=== PATIENT | female | born 1960 | race Hispanic/Latino ===

== ENCOUNTER 2021-02-27 23:03 | Emergency (ER) | payer SELFPAY ==
[2021-02-28] MEDS ORDERED: ACETAMINOPHEN 500 MG TAB PO ONE (01:56)
[2021-02-28] MEDS ORDERED: IBUPROFEN 600 MG TAB PO ONE (01:56)
--- NOTE | 2021-02-28 01:59 | Emergency Department Report ---
ED General Adult HPI - General Chief complaint: Back Pain/Injury Stated complaint: BACK PAIN Time Seen by Provider: 02/28/21 01:53 Source: patient Mode of arrival: Stretcher Limitations: No Limitations - History of Present Illness Initial comments: 60-year-old female patient presents to the emergency department with complaints of left-sided back pain and left hip pain status post mechanical fall 2 days ago. Patient states she was walking down the street when her foot became caught in a hole on the road and she accidentally fell into a ditch. There was no resulting head injury loss of consciousness. No history of prior back or hip surgeries. She has been ambulatory without assistance since the fall. Denies headache, neck pain, knee pain, foot pain, ankle pain, paresthesias, numbness, weakness, bladder/bowel incontinence. Denies all other complaints at this time. - Related Data Previous Rx's Medication Instructions Recorded Last Taken Type Naproxen 500 mg PO BID #20 tablet 02/28/21 Unknown Rx Allergies Allergy/AdvReac Type Severity Reaction Status Date / Time No Known Allergies Allergy Unverified 02/28/21 00:18 ED Review of Systems ROS: Stated complaint: BACK PAIN Other details as noted in HPI Other: CARDIOVASCULAR: Negative for chest pain. PULMONARY: Negative for dyspnea. GASTROINTESTINAL: Negative for abdominal pain. MUSCULOSKELETAL: Positive for back pain and hip pain NEUROLOGICAL: Negative for headache. INTEGUMENTARY: Negative for ecchymosis. ED Past Medical Hx - Past Medical History Previous Medical History?: No - Surgical History Past Surgical History?: No - Social History Smoking Status: Current Every Day Smoker Substance Use Type: None - Medications Home Medications: Home Medications Medication Instructions Recorded Confirmed Last Taken Type Naproxen 500 mg PO BID #20 tablet 02/28/21 Unknown Rx ED Physical Exam - General Limitations: No Limitations - Other Other exam information: General: Awake, appropriately interactive, no acute distress. Neck: Supple. Full range of motion intact. No cervical spine tenderness. Cardiovascular: Normal peripheral perfusion. Pulmonary: No respiratory distress. Patient is speaking normally without use of accessory muscles. Skin: No apparent rashes or lesions. Neurological: No facial asymmetry. Speech is clear. Follows commands. Patient is alert and oriented. Musculoskeletal: Tenderness to palpation throughout the left hip. No rotational deformity. No leg length discrepancy. Distal neurovascular and motor/sensory function intact. Back: Left paraspinal lumbar tenderness. No muscle spasm. No vertebral tenderness. No step-offs. No saddle anesthesia. Psych: Cooperative. Appropriate mood and affect. ED Course Vital Signs 02/28/21 02/28/21 00:10 02:03 Temperature 98.8 F Pulse Rate 80 Respiratory 18 16 Rate Blood Pressure 181/102 O2 Sat by Pulse 98 Oximetry ED Medical Decision Making - Medical Decision Making Differential diagnosis including but not limited to: sprain, strain, fracture, contusion, dislocation On reevaluation, patient remains stable. Resting comfortably, no acute distress. X-rays without acute process. History and exam findings consistent with left hip/left back contusion. No clinical indication for further diagnostic work-up on an emergent basis at this time. Patient will be discharged home with appropriate analgesics and referred to primary care provider for close outpatient follow-up. Patient expressed understanding and is agreeable to plan of care. Strict return precautions provided. Repeat exam is unremarkable and benign. History, exam, diagnostic testing, and current condition do not suggest worrisome pathology to warrant further testing, continued ED treatment, admission, or surgical evaluation at this point. Given the low probability of a significant medical illness, it would be more likely to result in harm than benefit to perform further testing at this stage. Discussed findings, presumptive diagnosis, need for follow-up and specific signs/symptoms that should prompt immediate return to the emergency department. Instructions were explained in detail to the patient in addition to giving written discharge information. Patient expressed understanding and was given the opportunity to ask questions, all of which were satisfactorily answered prior to discharge home. Critical care attestation.: If time is entered above; I have spent that time in minutes in the direct care of this critically ill patient, excluding procedure time. ED Disposition Clinical Impression: Contusion of left hip Qualifiers: Encounter type: initial encounter Qualified Code(s): S70.02XA - Contusion of left hip, initial encounter Contusion of left back wall of thorax Qualifiers: Encounter type: initial encounter Qualified Code(s): S20.222A - Contusion of left back wall of thorax, initial encounter Disposition: TO HOME OR SELFCARE Is pt being admited?: No Does the pt Need Aspirin: No Condition: Stable Instructions: Contusion, [id number] Additional Instructions: Take Tylenol every 4 hours as needed for pain. Take Naprosyn twice daily with food as needed for pain. Apply ice to affected area as needed for pain. Gradually advance physical activity slowly as tolerated. Follow-up with primary care provider this week. Call Monday to schedule an appointment. See referral information below. Return to the emergency department immediately for new or worsening symptoms. Prescriptions: Naproxen 500 mg PO BID #20 tablet Referrals: KANNAN BEST MD [Staff Physician] - 3-5 Days [facility] [Provider Group] - 3-5 Days Time of Disposition: 02:48
--- NOTE | 2021-02-28 02:32 | XRay Report ---
XR hip LT , 3 views INDICATION / CLINICAL INFORMATION: left hip pain s/p fall COMPARISON: None available. FINDINGS/IMPRESSION: No acute fracture or malalignment. Hip joint spaces are preserved. Soft tissues are unremarkable. Signer Name: Stan Cannon MD Signed: 02/28/2021 2:28 AM Workstation Name: [id number]
[2021-02-28 03:09] VITALS: BP 158/77
== END 2021-02-28 03:41 | disposition home or self-care (01) ==
LOC: ED 23:03
DX: S70.02XA Contusion of left hip, initial encounter (principal); S20.222A Contusion of left back wall of thorax, initial encounter; F17.200 Nicotine dependence, unspecified, uncomplicated; W18.39XA Other fall on same level, initial encounter; Y93.89 Activity, other specified; Y92.89 Other specified places as the place of occurrence of the external cause; Y99.8 Other external cause status
CPT/HCPCS: 99283